=== PATIENT | male | born 1955 | race Caucasian/White ===

== ENCOUNTER → 2016-12-27 | Outpatient (CLI) | payer OTHER ==
--- NOTE | 2016-12-27 10:34 | MR ---
EXAMINATION TYPE: MR cspine/lspine wo con DATE OF EXAM: 12/27/2016 COMPARISON: MR cervical spine 07/13/2010 HISTORY: Low back pain, Camron leg pain, Neck and arm pain and weakness TECHNIQUE: Multiplanar, multisequence imaging of the lumbar and cervical spine is performed without I V contrast. FINDINGS: Cervical spine MRI: Similar spondylosis is present at C5-6 and C6-7 with associated loss of disc heig ht signal, to lesser extent at C4-5. Cervical cord signal is normal. Cervical vertebral bodies show p reserved height and alignment. Endplate discogenic marrow signal changes are present at the levels of the spondylosis. C2-3: No significant central canal stenosis. Small posterior disc bulge causes slight anterior mass e ffect on the thecal sac. No foraminal encroachment. C3-4: No evident disc herniation or significant central stenosis. Lateral extension of endplate disc complex encroaches mildly on the neural foramina right greater than left. C4-5: No evident disc herniation or significant central canal stenosis. Facet arthropathy causes some mild posterior lateral encroachment on the thecal sac on the right. C5-6: Posterior extension of endplate disc complex causes anterior mass effect on the thecal sac, one mild central stenosis. Lateral extension endplate disc complex encroaches on the neural foramina lef t greater than right. C6-7: Left-sided foraminal encroachment is present greater than right. There is mild central stenosis due to posterior extension endplate disc complex. C7-T1: Mild posterior broad-based disc bulge causes slight anterior mass effect on the thecal sac. No significant central stenosis. On mild foraminal encroachment present bilaterally. Impression: Multilevel foraminal encroachment, degenerative disc disease similar to prior exam. Lumbar MRI: Lumbar vertebral bodies show preserved height and alignment, there is multilevel spondylosis with min imal endplate discogenic marrow signal change. The conus is at T12-L1 shows an unremarkable appearanc e. There is no significant central canal stenosis or foraminal encroachment. Mild posterior broad-based disc bulge present at L5-S1 causes contact the anterior thecal sac. There is mild facet arthropathy. Some loss of disc height and signal is present. L4-5: Facet arthropathy with hypertrophy of the ligamentum flavum encroaches on the lateral recesses. Mild anterior mass effect on the thecal sac due to minimal circumferential disc bulge. No significan t foraminal encroachment. L3-4: Broad-based posterior disc bulge causes mild anterior mass effect on the thecal sac. Hypertroph ic change of the ligamentum flavum encroaches somewhat on the lateral recesses, no significant forami nal encroachment or central stenosis. L2-3: Posterior broad-based disc bulge causes minimal anterior mass effect on the thecal sac. No sign ificant central stenosis or foraminal encroachment. Hypertrophic ligamentum flavum changes encroaches minimally on the lateral recesses. L1-2: Broad-based posterior disc bulge causes minimal anterior mass effect on the thecal sac. Ligamen comfort flavum hypertrophy causes minimal encroachment on the lateral recesses, no significant central st enosis or foraminal encroachment. IMPRESSION: Mild degenerative disc disease, facet arthropathy.
== END | disposition home or self-care (01) ==
LOC: RADMRIMAIN 08:44
PROVIDERS: ATTEND Nurse Practitioner Acute Care
DX: M51.36 Other intervertebral disc degeneration, lumbar region (principal); M50.30 Other cervical disc degeneration, unspecified cervical region; M46.86 Other specified inflammatory spondylopathies, lumbar region
CPT/HCPCS: 72141; 72148

== ENCOUNTER → 2024-05-26 | Outpatient (CLI) | payer MEDICARE, OTHER ==
--- NOTE | 2024-05-26 11:59 | PE ---
EXAMINATION TYPE: PET CT fusion skull to thigh DATE OF EXAM: 05/26/2024 CLINICAL INDICATION:Male, 69 years old with history of R91.1 LUNG NODULE; TECHNIQUE: Following the intravenous administration of 11.38 mCi of F-18 FDG, whole body images are performed from the skull base to the midthigh. Images are reviewed on the computer in the coronal, axial, and sagittal planes. Reconstructed rotating images are created on independent workstation and reviewed on the computer. A non-contrast CT is performed in conjunction with the PET scan. Glucose level 107 mg/dL CT DLP: 292 mGycm, Automated exposure control for dose reduction was used. COMPARISON: CT None, PET/CT None, MRI: None FINDINGS: Mediastinal SUV mean is 1.9. Hepatic parenchyma SUV mean is 2.8. SKULL BASE AND NECK: No suspicious radiotracer activity. CHEST, MEDIASTINUM, AND HILAR REGION: * No suspicious radiotracer activity. * No FDG avid pulmonary nodules visualized. ABDOMEN AND PELVIS: No suspicious radiotracer activity. MUSCULOSKELETAL STRUCTURES: * No suspicious radiotracer activity. * Suspected degeneration uptake around the left C2-C3 facet joint. OTHER CT: Atherosclerosis of the arterial vasculature including the coronary arteries. Few scattered partially calcified lymph nodes in the AP window. Moderate amount stool throughout colon. The appendi x is normal. Circumferential bladder wall thickening. Paraseptal emphysema changes IMPRESSION: 1. No suspicious radiotracer activity. No priors were available. If a prior is made available, an ad dendum can be made to address providers area of concern. Circumferential bladder wall thickening correlate with urinalysis for cystitis. [facility], , 05/26/2024 11:57 AM
== END | disposition home or self-care (01) ==
LOC: RADPETMAIN 09:51
PROVIDERS: ATTEND Internal Medicine
DX: J43.9 Emphysema, unspecified (principal); R91.1 Solitary pulmonary nodule
CPT/HCPCS: 78815; A9552

== ENCOUNTER 2024-06-21 10:06 | Day surgery (SDC) | payer MEDICARE, OTHER ==
[~2024-06-21 10:06] MED LIST: LACTATED RINGERS 1,000 ML IV SCH; LIDOCAINE 1% (10MG/ML) FOR IV START INTRADERMA PRN
[2024-06-21 11:44] VITALS: TEMP 97.6
[2024-06-21] MEDS: IV FLUID CONTINUATION 1,000 ML IV ONE (11:53)
[2024-06-21] MEDS ORDERED: PROPOFOL 10 MG/ML 20 ML VIAL IV ONE (12:18)
--- NOTE | 2024-06-21 12:27 | P.PCN ---
Date of Procedure: 06/21/24 Procedure(s) Performed: BRIEF HISTORY: Patient is a 69-year-old pleasant white female scheduled for an elective colonoscopy as a part of screening for colon cancer. He has family history of colon cancer diagnosed in his brother at age 47. PROCEDURE PERFORMED: Colonoscopy. PREOPERATIVE DIAGNOSIS: Screening for for colon cancer/family history of colon cancer. IV sedation per Anesthesia. PROCEDURE: After informed consent was obtained, the patient, was brought into the endoscopy unit. IV sedation was administered by Anesthesia under continuous monitoring. Digital rectal examination was normal. Initially the Olympus CF-160 flexible video colonoscope was then inserted in the rectum, gradually advanced into the cecum without any difficulty. Careful examination was performed as the scope was gradually being withdrawn. Ileocecal valve and the appendiceal orifice were visualized and appeared normal. Prep was excellent. Mucosa of the cecum, ascending colon, transverse colon, descending colon, sigmoid colon, and rectum appeared normal. Retroflexion was performed in the rectum and no lesions were seen. The patient tolerated the procedure well. IMPRESSION: Normal-appearing colon from rectum to cecum no evidence of colorectal neoplasia. RECOMMENDATIONS: Findings of this examination were discussed with the patient as well as his family. He was advised to have repeat screening colonoscopy in 5 years because of the family history of colon cancer
[2024-06-21 12:51] VITALS: BP 109/87; PULSE 73; RESP 16
== END 2024-06-21 13:18 | disposition home or self-care (01) ==
LOC: ORWHC2ENDO 10:06
PROVIDERS: ATTEND Internal Medicine Gastroenterology
DX: Z12.11 Encounter for screening for malignant neoplasm of colon (principal); E78.5 Hyperlipidemia, unspecified; F17.210 Nicotine dependence, cigarettes, uncomplicated; Z80.0 Family history of malignant neoplasm of digestive organs; Z79.02 Long term (current) use of antithrombotics/antiplatelets; Z79.82 Long term (current) use of aspirin
CPT/HCPCS: J2704; G0105

== ENCOUNTER → 2024-08-24 | Outpatient (CLI) | payer MEDICARE, OTHER ==
--- NOTE | 2024-08-24 13:46 | XR ---
EXAMINATION TYPE: XR cervical spine w flex/ext DATE OF EXAM: 08/24/2024 TECHNIQUE: Frontal, lateral, oblique, flexion and extension lateral, and open mouth view of the cervi mook spine are obtained. CLINICAL INDICATION: Male, 69 years old with history of M47.812 spondylosis, pain COMPARISON: MRI cervical spine 2017 FINDINGS: The cervical spine is visualized in its entirety from C1 thru the top of T1 level, it is s traightened in alignment with persistent grade 1 anterolisthesis C4 on C5. The pre-vertebral soft ti ssue appears within normal limits. The C1-C2 articulation is within normal limits on the open mouth view. Vertebral body heights are maintained. Persistent mild to moderate disc space narrowing with mo derate anterior spurring at C5-C6 and C7-T1 level. There is advanced disc space narrowing and anterio r spurring at C6-C7 level. Dynamic imaging shows increased disc space narrowing on extension at the C 4-C5 level. The oblique images show multilevel uncovertebral facet degenerative changes bilaterally c ausing multilevel bilateral neural foraminal narrowing. Overlying soft tissues are unremarkable. IMPRESSION: As above. [facility], , 08/24/2024 1:43 PM
== END | disposition home or self-care (01) ==
LOC: RADXRMAIN 13:21
PROVIDERS: ATTEND Internal Medicine
DX: M47.812 Spondylosis without myelopathy or radiculopathy, cervical region (principal); M50.322 Other cervical disc degeneration at C5-C6 level; M43.12 Spondylolisthesis, cervical region; M99.71 Connective tissue and disc stenosis of intervertebral foramina of cervical region
CPT/HCPCS: 72052

== ENCOUNTER → 2024-10-12 | Outpatient (CLI) | payer MEDICARE, OTHER ==
--- NOTE | 2024-10-12 08:55 | MR ---
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 IV Contrast: 7ml cc Gadobutrol (None if empty) FINDINGS: No craniocervical junction abnormality, predental space widening, or prevertebral soft tissue swellin g. There is progressive moderate degenerative disc disease especially mid to lower cervical spine C5-C7 levels with increasing disc desiccation, discussed by complex formation, disc space narrowing. Increasing corresponding ligamentum flavum thickening. Moderate to advanced hypertrophic facet arthropathy and uncovertebral joint arthropathy on the left a nd moderate on the right. New edematous Modic type I endplate change at C6-C7 and T2-T3. Overall changes contribute to moderate focal spinal canal stenosis C6-C7. Mild at C2-C3. No large foc al disc herniation or high-grade canal compromise. No discrete cord signal abnormality is seen or joe cord compression. New broad-based posterior disc protrusion at T2-T3 impressing on the ventral thecal sac, again, witho ut significant spinal canal stenosis. Straightening of the normal cervical lordosis. Degenerative grade 1 anterolisthesis C7-T1. At C2-C3, there is moderate left and moderate neural foraminal stenosis. At C3-C4, moderate bilateral neural foraminal stenosis. At C4-C5, moderate bilateral neuroforaminal stenosis. At C5-C6, moderate to severe left and mild right neuroforaminal stenosis. At C6-C7, severe left and moderate right neuroforaminal stenosis. At C7-T1, severe left and mild right neuroforaminal stenosis. No abnormal enhancement within the spinal canal. IMPRESSION: 1. Progressive moderate multilevel degenerative disc disease especially in the mid to lower cervical spine and visualized upper thoracic spine. New edematous Modic type I endplate change C6-C7 and T2-T3 . 2. Moderate to advanced hypertrophic facet and uncovertebral joint arthropathy, left greater than rig ht. Progressive ligamentum flavum thickening as well. Degenerative grade 1 anterolisthesis at C7-T1. 3. Changes result in overall moderate spinal canal stenosis at C6-7 and mild at C2-C3, both increased in the interval. No high-grade canal compromise or cord compression. 4. Variable moderate to severe neuroforaminal stenoses as outlined above. [facility], , 10/12/2024 8:53 AM
== END | disposition home or self-care (01) ==
LOC: RADMRIMAIN 05:57
PROVIDERS: ATTEND Internal Medicine
DX: M48.02 Spinal stenosis, cervical region (principal); M50.323 Other cervical disc degeneration at C6-C7 level; M47.812 Spondylosis without myelopathy or radiculopathy, cervical region; R60.0 Localized edema; M43.13 Spondylolisthesis, cervicothoracic region
CPT/HCPCS: 72156; A9585